=== PATIENT | male | born 1970 | race Caucasian/White ===

== ENCOUNTER 2019-12-09 11:10 | Outpatient (REF) | payer OTHER, SELFPAY ==
[2019-12-09 22:14] LABS: Calculated LDL 71 mg/dL (<100); Cholesterol 161 mg/dL (<200); HDL Cholesterol 33 mg/dL (40-60); Triglyceride 289 mg/dL (<150)
== END 2019-12-09 11:30 ==
LOC: NCHCN 11:10
PROVIDERS: PCP Nurse Practitioner Family; Visit Provider Nurse Practitioner Community Health
DX: Z13.220 Encounter for screening for lipoid disorders (principal)
CPT/HCPCS: 80061

== ENCOUNTER 2021-08-23 22:39 | Outpatient (REF) | payer OTHER, SELFPAY ==
[2021-08-23 22:22] LABS: Anion Gap 10.1 mmol/L (3-11); BUN 22 mg/dL (7-18); CO2 26.9 mmol/L (21.0-32.0); Chloride 106 mmol/L (98-107); Glucose 105 mg/dL (74-106); Potassium 4.2 mmol/L (3.5-5.1); Sodium 143 mmol/L (136-145)
== END 2021-08-23 22:40 | disposition home or self-care (01) ==
LOC: NCHCN 22:39
PROVIDERS: PCP Nurse Practitioner Family; Visit Provider Nurse Practitioner Community Health
DX: F41.8 Other specified anxiety disorders (principal); Z68.34 Body mass index [BMI] 34.0-34.9, adult
CPT/HCPCS: 80048

== ENCOUNTER 2023-02-12 15:24 | Outpatient (REF) | payer OTHER, SELFPAY ==
[2023-02-12 17:05] LABS: ALT 66 U/L (16-63); AST 32 U/L (15-37); Albumin 3.5 g/dL (3.4-5.0); Alkaline Phosphatase 75 U/L (46-116); Anion Gap 9.7 mmol/L (3-11); BUN 19 mg/dL (7-18); Bilirubin, Total 0.3 mg/dL (0.2-1.0); CO2 28.3 mmol/L (21.0-32.0); CREATININE 0.9 mg/dL (0.70-1.30); Calcium 8.6 mg/dL (8.5-10.1); Calculated LDL 97 mg/dL (<100); Chloride 105 mmol/L (98-107); Cholesterol 175 mg/dL (<200); Estimated GFR 102.76 (mL/min/1.73m2); Glucose 124 mg/dL (74-106); HDL Cholesterol 39 mg/dL (40-60); Magnesium 2.1 mg/dL (1.8-2.4); Potassium 4.3 mmol/L (3.5-5.1); Sodium 143 mmol/L (136-145); Total Protein 7.2 g/dL (6.4-8.2); Triglyceride 196 mg/dL (<150)
[2023-02-12 17:06] LABS: Hemoglobin A1C 6.3 % (<5.7)
== END 2023-02-12 15:25 | disposition home or self-care (01) ==
LOC: NCHCN 15:24
PROVIDERS: PCP Nurse Practitioner Family; Visit Provider Nurse Practitioner Family
DX: E78.5 Hyperlipidemia, unspecified (principal); K21.9 Gastro-esophageal reflux disease without esophagitis; Z51.81 Encounter for therapeutic drug level monitoring; J45.20 Mild intermittent asthma, uncomplicated; E66.8 Other obesity; Z13.1 Encounter for screening for diabetes mellitus; Z68.34 Body mass index [BMI] 34.0-34.9, adult
CPT/HCPCS: 80053; 80061; 83036; 83735

== ENCOUNTER 2024-02-18 15:46 | Outpatient (REF) | payer BC, SELFPAY ==
[2024-02-18 16:11] LABS: ALT 50 U/L (16-63); AST 27 U/L (15-37); Albumin 3.7 g/dL (3.4-5.0); Alkaline Phosphatase 78 U/L (46-116); Anion Gap 10.5 mmol/L (3-11); BUN 20 mg/dL (7-18); Bilirubin, Total 0.4 mg/dL (0.2-1.0); CO2 25.5 mmol/L (21.0-32.0); CREATININE 0.8 mg/dL (0.70-1.30); Calcium 8.6 mg/dL (8.5-10.1); Calculated LDL 98 mg/dL (<100); Chloride 107 mmol/L (98-107); Cholesterol 168 mg/dL (<200); Estimated GFR 105.82 (mL/min/1.73m2); Glucose 113 mg/dL (74-106); HDL Cholesterol 42 mg/dL (40-60); Potassium 4.4 mmol/L (3.5-5.1); Sodium 143 mmol/L (136-145); Total Protein 7.6 g/dL (6.4-8.2); Triglyceride 140 mg/dL (<150)
[2024-02-18 16:36] LABS: Hemoglobin A1C 6.1 % (<5.7)
[2024-02-18 22:59] LABS: PSA, Diagnostic 2.7 ng/mL (<=3.5)
== END 2024-02-18 15:47 | disposition home or self-care (01) ==
LOC: NCHCN 15:46
PROVIDERS: PCP Nurse Practitioner Family; Referring Provider Nurse Practitioner Family; Visit Provider Nurse Practitioner Family
DX: E78.5 Hyperlipidemia, unspecified (principal); R73.03 Prediabetes; Z80.42 Family history of malignant neoplasm of prostate
CPT/HCPCS: 80053; 80061; 83036; 84153

== ENCOUNTER → 2025-07-22 15:17 | Outpatient (BNVA) | payer MEDICARE, SELFPAY | PROVIDERS: PCP Physician Assistant; Visit Provider Physical Therapy Assistant | DX: Z12.11 Encounter for screening for malignant neoplasm of colon (principal); Z80.0 Family history of malignant neoplasm of digestive organs; Z86.0101 Personal history of adenomatous and serrated colon polyps | CPT/HCPCS: S0285 ==

== ENCOUNTER 2025-08-06 11:16 | Day surgery (SDC) | payer MEDICARE, SELFPAY ==
--- NOTE | 2025-08-05 17:40 | W.PM.DSUDISC ---
Date of service: 08/06/25 Discharge Plan Disposition Patient Disposition: Home Discharge Details Reason For Visit: screening colonoscopy Attending Provider: Truman Chou Primary Care Provider: Kevyn Serrano Home Meds and New Rx's Prescriptions: Continued albuterol sulfate 90 mcg/actuation HFA aerosol inhaler 2 puff inhalation Q6H PRN fluticasone propionate 50 mcg/actuation blister with device 1 inh inhalation Q12H budesonide-formoterol [Symbicort] 160-4.5 mcg/actuation HFA aerosol inhaler 1 puff inhalation BID famotidine 20 mg tablet 20 mg PO DAILY Discontinued bisacodyl [Dulcolax (bisacodyl)] 5 mg tablet,delayed release (DR/EC) 5 mg PO ONCE Qty: 4 0RF Rx Instructions: Take per colonoscopy instructions provided by ordering providers office polyethylene glycol 3350 17 gram/dose powder 17 g PO ONCE Qty: 238 0RF Rx Instructions: Take per colonoscopy instructions provided by ordering providers office Discharge Instructions Additional Instructions: Jaquan, was a pleasure meeting you today, and I hope you feel well after the procedure. Things went very smoothly. Your prep was excellent, and I could see everything fine. I did find, and removed, 1 small polyp today. I will send this off to the pathologist for the review. We use the nature of the polyp to help guide the timing of future colonoscopies. Those results will take a week or 2 to get back, but once I have that information, my office will be in touch with any other recommendations. If you need anything or have any questions, please do not hesitate to call. 1. If tolerated, consume a soft, low fiber diet for 1-2 days. 2. Do not drive, drink alcohol, operate machinery, make critical decisions, or do activities that require coordination or balance for 24 hours. 3. Because air was put into your colon during the procedure, expelling air from your rectum (passing gas or farting) is normal. 4. You may not have a bowel movement for 1-3 days because of the colonoscopy prep. This is normal. 5. Go directly to the emergency room if you notice any of the following: Develop chills (warm to touch), or if you have a thermometer and your temperature is above 101 Difficulty breathing or difficultly swallowing Persistent vomiting Severe abdominal pain, other than gas cramps Severe chest pain Black, tarry stools Any bleeding ? exceeding one tablespoon 6. Call your physician if the site where your intravenous was started becomes red, swollen, painful, and warm to touch. 7. Your physician has reviewed your pre-procedure medications. Please continue to take those medications as previously ordered. You will be given specific information/education regarding any changes to your medications before leaving. Stand Alone Forms: Anesthesia Discharge Inst., Colonoscopy Post Instructions, Jerry Dai (DSU) Activity:: Activity as Tolerated Diet:: As Tolerated Discharge Orders Discharge Orders: Discharge Order (Routine); Ordered 08/05/25 Ordered By: Truman Chou
--- NOTE | 2025-08-05 17:41 | W.COLOREPORT ---
Date of service: 08/06/25 Time of Service: 13:02 Colonoscopy Report Date of procedure: 08/06/25 Pre-op diagnosis general: screening colonoscopy Post-op diagnosis procedure note: other (Colon polyp) Procedure: colonoscopy with polypectomy Surgeon: Truman Chou Anesthesia Type: General:No Airway Estimated blood loss (mL): 5 Pathology: other (0.25 cm flat polyp at 70 cm) Complications: None Disposition: same day Indications: Jaquan is a 55 year old man with a history adenomatous polyps and family history of colon cancer who needs his next screening colonoscopy Prep: Miralax/Dulcolax Procedure Start Time: 12:43 Procedure End Time: 12:56 Retraction Time: 8 Findings: 0.25 cm flat polyp at 70 cm Procedure Description: After the induction of anesthesia, and with the patient in left lateral decubitus position, I began by performing an external anorectal exam.? Perineum and skin were normal, as was the anal verge.? There was no evidence of external hemorrhoids.? Next, I performed a digital rectal exam.? I did not appreciate any abnormal findings.? Next, I advanced a colonoscope into the rectal vault.? I performed retroflexion.? This appeared normal.? Using insufflation, I then advanced the colonoscope beyond the rectal folds and into the sigmoid colon before advancing towards the cecum. The scope was noted to be in the cecum by identification of the ileocecal valve and appendiceal orifice.? I then began withdrawing the colonoscope using repeated irrigation as necessary for full evaluation of the colonic mucosa. Around 70 cm from the anal verge I identified a 0.25 cm polyp. ?It appeared flat in character. ?I was able to remove this with a cold forcep polypectomy. ?I examined the site, and there was minimal bleeding. ?Once this was completed, I continued to withdraw the scope and examine the remainder of the colonic mucosa.?Once the scope was withdrawn to the level of the rectum, great care was taken to examine portions of the rectal folds.? Finally, the scope was withdrawn and the patient was brought to the same-day surgery recovery unit as the anesthetic wore off. ?The findings and instructions were shared with the patient prior to discharge. [place] Bowel Prep Washington Bowel Prep Right Colon: 3 Left Colon: 3 Transverse Colon: 3 Total Score: 9
[2025-08-06 11:37] VITALS: BP 142/90; PULSE 83; RESP 16; TEMP 36; O2SAT 96
[2025-08-06] MEDS: Lactated Ringers 1,000 ML 80 ML IV (11:56)
--- NOTE | 2025-08-06 12:35 | W.ANESPRE ---
General Info Date of Service Date Performed: 08/06/25 Height: 5 ft 10 in Weight: 106 kg Body Mass Index (BMI): 33.5 Surgical Procedure: Operation Date: 08/06/25 12:50 Proposed Procedure Side Surgeon p Dianne Chou MD Meds Allergies and Home Medications Allergies Allergy/AdvReac Type Severity Reaction Status Date / Time No Known Allergies Allergy Verified 08/06/25 11:35 Home Medication ?Medication ?Instructions ?Recorded albuterol sulfate 90 mcg/actuation 2 puff inhalation Q6H PRN 04/14/25 aerosol inhaler budesonide-formoterol HFA 160 1 puff inhalation BID 04/14/25 mcg-4.5 mcg/actuation aerosol inhaler (Symbicort) fluticasone propionate 50 1 inh inhalation Q12H 04/14/25 mcg/actuation blister powder for inhalation famotidine 20 mg tablet 20 mg PO DAILY 07/22/25 Current Visit Medications: Current Medications Generic Name Dose Route Start Last Admin Trade Name Freq PRN Reason Stop Dose Admin Ringer's Solution 1,000 mls @ 80 mls/hr 08/06/25 06:00 08/06/25 11:56 IV 08/06/25 23:59 80 mls/hr INFUSION PATRICIA Administration IV Miscellaneous Supplies 1 each 08/06/25 06:00 Iv Access IV 08/06/25 23:59 DIRECTED PATRICIA Sodium Chloride 0 ml 08/06/25 06:00 Normal Saline Flush 10 Ml Syr IV 08/06/25 23:59 PRN PRN Sodium Chloride 0 ml 08/06/25 06:00 Normal Saline 10 Ml Vial IJ 08/06/25 23:59 DIRECTED PRN Sterile Water 0 ml 08/06/25 06:00 Water,Injection,Sterile 10 Ml Vial IJ 08/06/25 23:59 DIRECTED PRN PFSH Active Problems Active Problems: Problem Status Onset Code GERD without esophagitis Acute K21.9 Mild intermittent asthma Acute J45.20 Medical History Medical History Tubular adenoma of colon (~03/2022) per referral path from [facility] 3 tubular adenomas 1 hyperplastic Sleep pattern disturbance Obesity Hyperlipidemia Surgical History Surgical History History of colonoscopy with polypectomy (~03/2022) per referral done at [facility] Tobacco Smoking/Tobacco Use Status: Never Alcohol Alcohol Intake: former Substance Use Substance use: Never Substance use type: does not use Vital Signs and Lab Results Vital Signs Most Recent Vital Signs in EMR: Most Recent Vital Signs Temp Pulse Resp BP Pulse Ox 36 C L 83 16 142/90 H 96 08/06/25 11:37 08/06/25 11:37 08/06/25 11:37 08/06/25 11:37 08/06/25 11:37 Anesthesia Assessment and Plan Anesthesia History Personal History: No History of Anesthesia Complications Family History: No Family History of Anesthesia Complications Exercise Tolerance Exercise Tolerance: Metabolic Equivalents>4 Pertinent Negatives Pertinent Negatives: No Symptoms of GERD (rx) Cardiac & Pulmonary Exam Cardiac Exam: Normal S1/S2 Heart Sounds Pulmonary Exam: Clear Bilateral Breath Sounds Implantable Cardiac Device Does patient have a Pacemaker or an ICD?: No Airway Exam Known Difficult Airway: No Mallampati Class: 2 Mouth Opening: Normal (> 3cm) Thyromental Distance: Greater than 3 cm Neck Range of Motion: Full ROM Neck Circumference: Thick Teeth Condition: Normal Dentition ASA Classification ASA Score: ASA 2 Emergency Case?: No NPO Status NPO Status: NPO Clears >2 hours, Solids >8 hours Anesthesia Plan Resuscitation Status: Full Code Anesthesia Technique: General Anesthesia Airway Planned: Natural Airway Monitors Used: Standard Monitors
[2025-08-06 12:36] VITALS: BMI 33.5
--- NOTE | 2025-08-06 12:46 | BOWEL_PTH ---
PATIENT: Jaquan Carbajal LOC: [facility] U#:[id number] AGE/SX: 55/M ROOM: RE08/06/[address]: Truman Chou MD : 1970 BED: DIS: 08/06/2025 SPEC #: [id number] RECD: 08/06/25 15:33 STATUS: JAZZ RE #: [id number] JOSE ALBERTO: 08/06/25 12:[address]: Truman Chou DEPT: Surgical Specimen RECD BY: Alla Leslie ENTERED: 08/06/25 15:34 SP TYPE: Bowel OTHR DR: RADHA Odonnell Tissues: 1 - BIOPSY BOWEL Procedures: GROSS AND MICRO LEVEL 4 Comments: [id number]
[2025-08-06 13:03] VITALS: BP 115/86; PULSE 79; RESP 16; TEMP 36.1; O2SAT 97
--- NOTE | 2025-08-06 13:08 | W.ANESPOSTOP ---
Postoperative Evaluation Date, Time and Location Date Performed: 08/06/25 Time Performed: 13:09 Patient Location: Day Surgery Unit Vital Signs Most Recent Imported Vital Signs: Most Recent Vital Signs Temp Pulse Resp BP Pulse Ox 36 C L 83 16 142/90 H 96 08/06/25 11:37 08/06/25 11:37 08/06/25 11:37 08/06/25 11:37 08/06/25 11:37 Pain Score Most Recent Pain Score: Most Recent Pain Score Pain Level 2 08/06/25 11:37 Assessment Mental Status: Awake (Alert & Oriented to Patient Baseline) Airway and Respiratory Function: Patent airway with normal (patient baseline) respiratory exam Cardiovascular Function: Hemodynamically Stable Hydration Status: Adequately Hydrated Nausea & Vomiting: No Nausea or Vomiting Pain: Pt. Denies Any Pain Peripheral Nerve Block: Patient did not receive a nerve block
[2025-08-06 13:23] VITALS: BP 131/87; PULSE 69; RESP 16; TEMP 36.3; O2SAT 97
== END 2025-08-06 13:33 | disposition home or self-care (01) ==
LOC: SUR 11:17
PROVIDERS: PCP Physician Assistant; Visit Provider Surgery
PROC: 0DJD8ZZ Inspection of Lower Intestinal Tract, Via Natural or Artificial Opening Endoscopic (ICD-10-PCS; CPT 45378; principal; 2025-08-06 12:45)
DX: Z12.11 Encounter for screening for malignant neoplasm of colon (principal); D12.4 Benign neoplasm of descending colon; Z80.0 Family history of malignant neoplasm of digestive organs
CPT/HCPCS: 45380; 88305; J2704

== ENCOUNTER 2025-09-29 15:47 | Outpatient (REF) | payer MEDICARE, OTHER, SELFPAY ==
[2025-09-29 21:28] LABS: HCT 44.8 % (40.0-50.0); HGB 14.5 g/dL (13.5-17.5); MCH 27.5 pg (27.0-33.0); MCHC 32.4 % (32.0-36.0); MCV 85 fL (80-95); MPV 12.2 fL (8.0-11.0); Platelet Count 283 10^3/uL (130-400); RBC 5.28 10^6/uL (4.36-5.78); RDW 13.4 % (11.8-14.1); RDW-SD 41.8 fL; WBC 7.51 10^3/uL (4.4-10.8)
[2025-09-29 21:48] LABS: Hemoglobin A1C 6.5 % (<5.7)
[2025-09-29 22:20] LABS: ALT 58 U/L (10-49); AST 32 U/L (<34); Albumin 4.4 g/dL (3.4-5.0); Alkaline Phosphatase 78 U/L (46-116); Anion Gap 10.2 mmol/L (3-11); BUN 14 mg/dL (9-23); Bilirubin, Total 0.30 mg/dL (0.2-1.2); CO2 26.8 mmol/L (20.0-31.0); Calcium 8.8 mg/dL (8.3-10.6); Chloride 104 mmol/L (98-107); Cholesterol 178 mg/dL (<200); Glucose 113 mg/dL (74-106); HDL Cholesterol 37 mg/dL (>40); Potassium 4.0 mmol/L (3.5-5.1); Sodium 141 mmol/L (136-145); Total Protein 7.2 g/dL (5.7-8.2)
[2025-09-30 21:05] LABS: PSA, Screening 0.6 ng/mL (<=3.5)
[2025-09-30 21:44] LABS: HIV-1/2 Ag & Ab Screen Negative (Negative); Hepatitis C Ab w Rflx HCV PCR Negative (Negative)
[2025-10-14 23:30] LABS: Testosterone, Free 44.6 pg/mL (35.0-155.0)
== END 2025-09-29 15:48 | disposition home or self-care (01) ==
LOC: NCHCN 15:47
PROVIDERS: PCP Physician Assistant; Visit Provider Nurse Practitioner Family
DX: E66.01 Morbid (severe) obesity due to excess calories (principal); R73.03 Prediabetes; Z11.59 Encounter for screening for other viral diseases; Z11.4 Encounter for screening for human immunodeficiency virus [HIV]; Z12.5 Encounter for screening for malignant neoplasm of prostate
CPT/HCPCS: 80053; 80061; 84153; 84402; 84403; 85027; 86803; 87389; 83036

== ENCOUNTER 2025-10-05 20:39 | Outpatient (REF) | payer OTHER, SELFPAY ==
[2025-10-05 21:34] LABS: Microalb ug/mg Crea 1.9 ug/mg Cr
== END 2025-10-05 20:40 | disposition home or self-care (01) ==
LOC: NCHCN 20:39
PROVIDERS: PCP Physician Assistant; Visit Provider Nurse Practitioner Family
DX: E11.9 Type 2 diabetes mellitus without complications (principal)
CPT/HCPCS: 82043; 82570